=== PATIENT | male | born 1960 | race Caucasian/White ===

== ENCOUNTER → 2024-05-08 06:38 | Outpatient (REF) | payer SELFPAY ==
[2024-05-08] MEDS: LEXISCAN 0.400000000000000022 MG IV (08:28)
== END ==
LOC: RCS 06:38
PROVIDERS: ATTENDING PHYSICIAN Internal Medicine Cardiovascular Disease; FAMILY PHYSICIAN Internal Medicine
DX: R07.9 Chest pain, unspecified (principal)
CPT/HCPCS: 78452; 93017; A9500; J2785

== ENCOUNTER 2024-12-15 13:13 | Day surgery (SDC) | payer BC, SELFPAY ==
[2024-12-15] VITALS (10 sets, daily range): BP systolic 111–167; BP diastolic 83–111; BMI 38.2
[2024-12-15] MEDS: NSS 332 ML IV (14:01)
--- NOTE | 2024-12-15 18:30 | PTCARENOTE ---
While giving discharge instructions and reviewing the new medication losartan, the pt's stated that Dr King indicated the pt couldn't take losartan and that valsartan would be given instead. Spoke with Dr King and confirmed that pt should
take 40 mg valsartan daily versus the losartan listed on the discharge orders. Dr King sent the prescription electronically and the information was corrected with hand written instructions on the discharge paperwork.
--- NOTE | 2024-12-15 19:06 | ITS.CL.PN ---
[employer] - Procedure Note
Procedure
Procedure Note:
CARDIAC CATHETERIZATION REPORT
Date of Procedure: 12/15/2024
Referring: Dr. Adrian Sykes MD
Indication: dyspnea on exertion, positive cardiac stress test
PROCEDURE(S)
1. right heart catheterization
2. left heart catheterization
3. coronary angiography
ACCESS
1. 6F right radial artery (closure: radial band)
2. 5F right antecubital vein (closure: manual hemostasis)
CATHETERS
1. 5F [place]
2. 6F JR4
3. 6F JL3.5
MODERATE SEDATION: 65 minutes of moderate sedation was utilized. An independent clinical medical assistant was present to assist with and help manage the patient's level of consciousness and physiologic status.
ULTRASOUND GUIDED VASCULAR ACCESS (right radial artery): Ultrasound was utilized for vascular access. The vessel was visualized under ultrasound and noted to be patent. An image of the vessel was stored permanently in the patient's medical record.
Under direct ultrasound guidance, vascular access was obtained using a modified Seldinger technique and a 6 [place] sheath was placed.
ULTRASOUND GUIDED VASCULAR ACCESS (right brachial vein): Ultrasound was utilized for vascular access. The vessel was visualized under ultrasound and noted to be patent. An image of the vessel was stored permanently in the patient's medical record.
Under direct ultrasound guidance, vascular access was obtained using a modified Seldinger technique and a 5 [place] sheath was placed.
HEMODYNAMIC DATA
LV 149/26 (EDP 37) mmHg
AO 144/107 (mean 123) mmHg
RA 22 mmHg
RV 65/17 (EDP 30) mmHg
PA 62/41 (mean 51) mmHg
PCWP 36 mmHg
SaO2 88%
SvO2 63.5%
Hb 15.9 g/dL
CO/CI 5.5/2.5 L/min/m2
SVR 1469 dsc*-5
PVR 2.7 Wood units
CORONARY ANGIOGRAPHY
Dominance: Right
LM: Large, normal
LAD: Large vessel giving rise to two moderate caliber diagonal branches. There are mild luminal irregularities
LCx: Large vessel giving rise to a large branching OM1, moderate caliber OM2, moderate caliber LPL1, and small LPL2. There are mild luminal irregularities.
RCA: large vessel giving rise to a moderate caliber RPDA and small RPL branch. There are mild luminal irregularities.
RADIATION: dose 683 mGy; DAP 63 Gy*cm2; fluoroscopy time 7.1 min
CONCLUSIONS
1. Nonobstructive coronary artery disease in a right dominant system
2. Severely elevated biventricular filling pressures, severe postcapillary pulmonary hypertension, preserved cardiac output, and no aortic stenosis
RECOMMENDATIONS
1. expectant management after cardiac catheterization via right radial artery approach
2. aggressive primary prevention of coronary artery disease
3. medical management of diastolic heart failure with severely elevated filling pressures. IV diuresis given prior to discharge.
Copy to: Dr. Adrian Sykes MD (rotor assembler); Dr. Alon Magallanes MD (PCP)
Signed: Jean Paul King MD, PhD
== END 2024-12-15 19:40 | disposition home or self-care (01) ==
LOC: CATH 13:13
PROVIDERS: ATTENDING PHYSICIAN Student in an Organized Health Care Education/Training Program; FAMILY PHYSICIAN Internal Medicine; OTHER PHYSICIAN Internal Medicine Cardiovascular Disease
DX: I25.10 Atherosclerotic heart disease of native coronary artery without angina pectoris (principal); I27.29 Other secondary pulmonary hypertension; I11.0 Hypertensive heart disease with heart failure; I50.32 Chronic diastolic (congestive) heart failure; Z79.82 Long term (current) use of aspirin; Z79.899 Other long term (current) drug therapy
CPT/HCPCS: 99152; 99153; 76937; 93460; C1769; C1894; Q9967

== ENCOUNTER → 2025-02-01 08:48 | Outpatient (REF) | payer BC, SELFPAY ==
[2025-02-01 09:10] VITALS: BP 122/87; BP_SYST 93
== END ==
LOC: RADI 08:48
PROVIDERS: ATTENDING PHYSICIAN Internal Medicine
DX: E85.0 Non-neuropathic heredofamilial amyloidosis (principal)
CPT/HCPCS: 88305; 20206; 76942; 88313